=== PATIENT | female | born 1965 | race Caucasian/White ===

== ENCOUNTER 2016-10-21 10:45 | Emergency (ER) | payer OTHER ==
[2016-10-21 11:36] VITALS: TEMP 98.5; BMI 26.8
--- NOTE | 2016-10-21 17:50 | PDOC ---
History of Present Illness - History of Present Illness Initial Comments: 10/21/16 19:03 The patient is a 51 year old female with no past medical hx who presents to the ED complaining of nausea, vomiting, and diarrhea for two weeks. The patient states she has associated subjective fever and lower back pain. The patient denies any dysuria, hematuria, frequency, urgency. The patient notes she had an unremarkable colonoscopy in October of 2014. She also had a gastric emptying procedure and the study was normal. The patient reports headache The patient denies chest pain, SOB The patient denies chills Social: No toxic habits reported Surgical: Allergies: NKDA PCP: Dr. Diehl <Shilpa Mehta - Last Filed: 10/21/16 19:03> <Olivia Valenzuela - Last Filed: 10/21/16 19:11> - General Chief Complaint: Back Pain Stated Complaint: HEADACHES, VOMITING, LOWER BACK PAIN Time Seen by Provider: 10/21/16 17:43 Past History <Shilpa Mehta - Last Filed: 10/21/16 19:03> - Past Medical History Anemia: No Asthma: No Cancer: No Cardiac Disorders: No CVA: No COPD: No CHF: No Dementia: No Diabetes: No GI Disorders: No Disorders: No HTN: Yes Hypercholesterolemia: No Liver Disease: No Psychiatric Problems: Yes (ANXIETY.) Seizures: No Thyroid Disease: Yes (HYPER.) - Surgical History Abdominal Surgery: Yes Appendectomy: No Cardiac Surgery: No Cholecystectomy: No Lung Surgery: No Neurologic Surgery: No Orthopedic Surgery: No - Immunization History Immunization Up to Date: Yes - Psycho/Social/Smoking Cessation Hx Anxiety: Yes Suicidal Ideation: No Smoking History: Current every day smoker Have you smoked in the past 12 months: Yes Number of Cigarettes Smoked Daily: 2 Information on smoking cessation initiated: No 'Breaking Loose' booklet given: 12/22/13 Hx Alcohol Use: Yes Drug/Substance Use Hx: No Substance Use Type: Alcohol Hx Substance Use Treatment: No <Olivia Valenzuela - Last Filed: 10/21/16 19:11> - Past Medical History Allergies/Adverse Reactions: Allergies Allergy/AdvReac Type Severity Reaction Status Date / Time No Known Allergies Allergy Verified 10/21/16 11:32 Home Medications: Ambulatory Orders Petrolat,Wht/Min Oil/Sod Chl [Artificial Tear Ointment] 1 applic OP TID #1 tube 07/10/15 Ondansetron [Zofran Odt -] 4 mg SL TID PRN #12 od.tablet 10/21/16 Review of Systems - Review of Systems Able to Perform ROS?: Yes Comments:: 10/21/16 19:03 CONSTITUTIONAL: +fever Absent: chills, diaphoresis, generalized weakness, malaise, loss of appetite HEENT: Absent: rhinorrhea, nasal congestion, throat pain, throat swelling, difficulty swallowing, mouth swelling, ear pain, eye pain, visual Changes CARDIOVASCULAR: Absent: chest pain, syncope, palpitations, irregular heart rate, lightheadedness , peripheral edema RESPIRATORY: Absent: cough, shortness of breath, dyspnea with exertion, orthopnea, wheezing, stridor, hemoptysis GASTROINTESTINAL: +Nausea, vomiting, diarrhea. Absent: abdominal pain, abdominal distension, constipation, melena, hematochezia GENITOURINARY: Absent: dysuria, frequency, urgency, hesitancy, hematuria, flank pain, genital pain MUSCULOSKELETAL: +lower back pain Absent: joint swelling SKIN: Absent: rash, itching, pallor ENDOCRINE: Absent: unexplained weight gain, unexplained weight loss, heat intolerance, cold intolerance NEUROLOGIC: +headache Absent: focal weakness or paresthesias, dizziness, unsteady gait, seizure, mental status changes, bladder or bowel incontinence PSYCHIATRIC: Absent: anxiety, depression, suicidal or homicidal ideation, hallucinations. <Shilpa Mehta - Last Filed: 10/21/16 19:03> *Physical Exam - Vital Signs Last Vital Signs Temp Pulse Resp BP Pulse Ox 98.5 F 78 18 135/88 98 10/21/16 11:33 10/21/16 11:33 10/21/16 11:33 10/21/16 11:33 10/21/16 11:33 - Physical Exam Comments: 10/21/16 19:04 GENERAL: Well developed, well nourished. Awake and alert. No acute distress. HEENT: Normocephalic, atraumatic. PERRLA, EOMI. No conjunctival pallor. Sclera are non- icteric. Moist mucous membranes. Oropharynx is clear. NECK: Supple. Full ROM. No JVD. Carotid pulses 2+ and symmetric, without bruits. No thyromegaly. No lymphadenopathy. CARDIOVASCULAR: Regular rate and rhythm. No murmurs, rubs, or gallops. Distal pulses are 2+ and symmetric. PULMONARY: No evidence of respiratory distress. Lungs clear to auscultation bilaterally. No wheezing, rales or rhonchi. ABDOMINAL: +Mild diffuse abdominal tenderness, moderate epigastric tenderness. Soft. Non- tender. Non-distended. No rebound or guarding. No organomegaly. Normoactive bowel sounds. MUSCULOSKELETAL +Right CVA tenderness. Normal range of motion at all joints. No bony deformities or tenderness. EXTREMITIES: No cyanosis. No clubbing. No edema. No calf tenderness. SKIN: Warm and dry. Normal capillary refill. No rashes. No jaundice. NEUROLOGICAL: Alert, awake, appropriate. Cranial nerves 2-12 intact. No deficits to light touch and temperature in face, upper extremities and lower extremities. No motor deficits in the in face, upper extremities and lower extremities. Normoreflexic in the upper and lower extremities. Normal speech. Gait is normal without ataxia. PSYCHIATRIC: Cooperative. Good eye contact. Appropriate mood and affect. <Shilpa Mehta - Last Filed: 10/21/16 19:03> - Vital Signs Last Vital Signs Temp Pulse Resp BP Pulse Ox 98.5 F 78 18 135/88 98 10/21/16 11:33 10/21/16 11:33 10/21/16 11:33 10/21/16 11:33 10/21/16 11:33 <Olivia Valenzuela - Last Filed: 10/21/16 19:11> ED Treatment Course - LABORATORY CBC & Chemistry Diagram: 10/21/16 18:06 10/21/16 18:06 - ADDITIONAL ORDERS Additional order review: Laboratory Results 10/21/16 10/21/16 18:06 18:06 Sodium 141 Potassium 4.0 Chloride 104 Carbon Dioxide 31 Anion Gap 6 L BUN 12 Creatinine 0.6 Creat Clearance w eGFR > 60 Random Glucose 83 D Calcium 8.7 Total Bilirubin 0.4 AST 26 ALT 30 Alkaline Phosphatase 113 Total Protein 7.3 Albumin 3.7 Lipase 175 Urine Color Ltyellow Urine Appearance Clear Urine pH 7.0 D Ur Specific Rougon 1.016 Urine Protein Negative Urine Glucose (UA) Negative Urine Ketones Negative Urine Blood Negative Urine Nitrite Negative Urine Bilirubin Negative Urine Urobilinogen Negative Ur Leukocyte Esterase Negative 10/21/16 18:06 RBC 4.42 MCV 93.9 MCHC 33.1 RDW 12.4 MPV 7.8 Neutrophils % 42.9 Lymphocytes % 46.0 H D Monocytes % 7.9 Eosinophils % 2.4 Basophils % 0.8 - Medications Given in the ED: ED Medications Discontinued Medications Generic Name Dose Route Start Last Admin Trade Name Freq PRN Reason Stop Dose Admin Famotidine/Sodium Chloride 50 mls @ 100 mls/hr 10/21/16 18:03 10/21/16 18:25 Pepcid 20 Mg Premixed Ivpb - IVPB 10/21/16 18:32 100 mls/hr ONCE ONE Administration Sodium Chloride 1,000 mls @ 1,000 mls/hr 10/21/16 18:03 10/21/16 18:25 Normal Saline - IV 10/21/16 19:02 1,000 mls/hr ASDIR STA Administration Ondansetron HCl 4 mg 10/21/16 18:04 10/21/16 18:25 Zofran Injection IVPUSH 10/21/16 18:05 4 mg ONCE ONE Administration <Shilpa Mehta - Last Filed: 10/21/16 19:03> - LABORATORY CBC & Chemistry Diagram: 10/21/16 18:06 10/21/16 18:06 <Olivia Valenzuela - Last Filed: 10/21/16 19:11> *DC/Admit/Observation/Transfer - Attestations Scribe Attestion: 10/21/16 19:04 Documentation prepared by Shilpa Mehta, acting as vp medical for Olivia Valenzuela MD/DO. <Shilpa Mehta - Last Filed: 10/21/16 19:03> <Olivia Valenzuela - Last Filed: 10/21/16 19:11> Diagnosis at time of Disposition: Gastritis Qualifiers: Gastritis type: other gastritis Chronicity: unspecified Gastritis bleeding: without bleeding Qualified Code(s): K29.60 - Other gastritis without bleeding - Discharge Dispostion Disposition: HOME Condition at time of disposition: Stable - Prescriptions Prescriptions: Ondansetron [Zofran Odt -] 4 mg SL TID PRN #12 od.tablet PRN Reason: Nausea And/Or Vomiting - Referrals Referrals: Song Diehl MD [Primary Care Provider] - Boby Baca DO [Staff Physician] - - Patient Instructions Printed Discharge Instructions: DI for Gastritis Additional Instructions: please follow up with your die trouble shooter or see your regular physician to have a referral please machine pecan picker your prescription at [facility]
[2016-10-21] MEDS ORDERED: SODIUM CHLORIDE 1,000 ML IV STA (18:03)
[2016-10-21] MEDS ORDERED: FAMOTIDINE 20 MG/50 ML IVPB 50 ML IVPB ONE ×2 (18:03→18:12)
[2016-10-21] MEDS ORDERED: ONDANSETRON 4 MG/2 ML VIAL IVPUSH ONE (18:04)
[2016-10-21] MEDS ORDERED: ONDANSETRON 4 MG/2 ML VIAL ONE (18:11)
[2016-10-21 18:29] LABS: BASOPHIL 0.8 % (0-2.0); EOSINOPHIL 2.4 % (0-4.5); MCHC 33.1 g/dl (32.0-36.0); MEAN CELL VOLUME 93.9 fl (80-96); MEAN PLT VOLUME 7.8 fl (7.5-11.1); NEUTROPHILS 42.9 % (42.8-82.8); PLATELET COUNT 304 K/MM3 (134-434); RDW 12.4 % (11.6-15.6); WHITE BLOOD COUNT 6.5 K/mm3 (4.0-10.0)
[2016-10-21 18:30] LABS: URINE APPEARANCE CLEAR; URINE BILIRUBIN NEGATIVE (NEGATIVE); URINE BLOOD NEGATIVE (NEGATIVE); URINE COLOR LTYELLOW; URINE GLUCOSE (UA) NEGATIVE (NEGATIVE); URINE KETONE NEGATIVE (NEGATIVE); URINE LEUK ESTERASE NEGATIVE (NEGATIVE); URINE NITRITE NEGATIVE (NEGATIVE); URINE PROTEIN NEGATIVE (NEGATIVE); URINE UROBILINOGEN NEGATIVE E.U./dl (0.2-1.0)
[2016-10-21 18:53] LABS: ALBUMIN 3.7 g/dl (3.4-5.0); ALK PHOS 113 U/L (45-117); ANION GAP 6 (8-16); BILIRUBIN,TOTAL 0.4 mg/dL (0.2-1.0); CALCIUM 8.7 mg/dL (8.5-10.1); CO2 31 mmol/L (21-32); CREATININE 0.6 mg/dL (0.55-1.02); GLUCOSE,RANDOM 83 mg/dL (74-106); SGOT/AST 26 U/L (15-37); SGPT/ALT 30 U/L (12-78); TOT PROT 7.3 g/dl (6.4-8.2)
[2016-10-21 19:33] VITALS: BP 128/78; PULSE 76
== END 2016-10-21 19:38 | disposition home or self-care (01) ==
LOC: JER 10:45
PROC: 3E033GC Introduction of Other Therapeutic Substance into Peripheral Vein, Percutaneous Approach (ICD-10-PCS; principal; 2016-10-21)
PROC: 3E0337Z Introduction of Electrolytic and Water Balance Substance into Peripheral Vein, Percutaneous Approach (ICD-10-PCS; 2016-10-21)
DX: K29.60 Other gastritis without bleeding (principal); F17.210 Nicotine dependence, cigarettes, uncomplicated
CPT/HCPCS: 36415; 80053; 81003; 83690; 85025; 96365; 96375; 99282-25

== ENCOUNTER → 2017-02-24 | Emergency (ER) | payer OTHER ==
[~2017-02-24] MED LIST: ONDANSETRON 4 MG/2 ML VIAL IVPUSH STA; ONDANSETRON 4 MG/2 ML VIAL ONE; PANTOPRAZOLE SODIUM 40 MG VIAL ONE; PANTOPRAZOLE SODIUM 40 MG in SODIUM CHLORIDE 100 ML IVPB ONE; POTASSIUM CHLORIDE TABS 20 MEQ TABLET.ER (FP) PO ONE; SODIUM CHLORIDE 1,000 ML IV STA
[2017-02-24 01:54] VITALS: BP 126/73; PULSE 75; TEMP 97.5; BMI 26.3
--- NOTE | 2017-02-24 02:05 | PDOC ---
History of Present Illness - General History Source: Patient Exam Limitations: No Limitations - History of Present Illness Initial Comments: 02/24/17 02:13 The patient is a 51 year old female with significant past medical history of hypertension who presents to the ED for nausea, vomiting and diarrhea for less than 24 hours. Patient reports she was in her usual state of health when she ate some vincentian food yesterday afternoon and subsequently started to have several episodes of nonbloody/nonbilious vomiting and nonbloody diarrhea. She also reports diffuse abdominal pain. Patient states going to a clinic last night where she was prescribed zofran with no improvement. The patient denies fever, chills, cough, SOB, chest pain, and palpitations. Allergies: NKDA Social History: Occasional tobacco and etoh use. Denies drug use. Past Surgical History: PCP: Dr. Song Diehl <Etta Roberto - Last Filed: 02/24/17 05:44> - General History Source: Patient <Evans Strong - Last Filed: 02/24/17 05:49> - General Chief Complaint: Pain Stated Complaint: ABD PAIN/VOMITING/DIARRHEA Time Seen by Provider: 02/24/17 01:54 Past History <Etta Roberto - Last Filed: 02/24/17 05:44> - Past Medical History Anemia: No Asthma: No Cancer: No Cardiac Disorders: No CVA: No COPD: No CHF: No Dementia: No Diabetes: No GI Disorders: No Disorders: No HTN: Yes Hypercholesterolemia: No Liver Disease: No Psychiatric Problems: Yes (ANXIETY.) Seizures: No Thyroid Disease: Yes (HYPER.) - Surgical History Abdominal Surgery: Yes Appendectomy: No Cardiac Surgery: No Cholecystectomy: No Lung Surgery: No Neurologic Surgery: No Orthopedic Surgery: No - Immunization History Immunization Up to Date: Yes - Psycho/Social/Smoking Cessation Hx Anxiety: Yes Suicidal Ideation: No Smoking History: Never smoked Have you smoked in the past 12 months: No Number of Cigarettes Smoked Daily: 2 Information on smoking cessation initiated: No 'Breaking Loose' booklet given: 12/22/13 Hx Alcohol Use: No Drug/Substance Use Hx: No Substance Use Type: Alcohol Hx Substance Use Treatment: No <Evans Strong - Last Filed: 02/24/17 05:49> - Past Medical History Allergies/Adverse Reactions: Allergies Allergy/AdvReac Type Severity Reaction Status Date / Time No Known Allergies Allergy Verified 02/24/17 02:53 Home Medications: Ambulatory Orders Famotidine [Pepcid] 40 mg PO DAILY #30 tablet 02/24/17 Ondansetron [Zofran *Odt*] 4 mg SL TID #30 od.tablet 02/24/17 Review of Systems - Review of Systems Able to Perform ROS?: Yes Comments:: 02/24/17 02:14 CONSTITUTIONAL: Absent: fever, no chills, no fatigue EYES: Absent: visual changes ENT: Absent: ear pain, no sore throat CARDIOVASCULAR: Absent: chest pain, no palpitations RESPIRATORY: Absent: cough, no SOB GI: +abdominal pain, nausea, vomiting, diarrhea Absent: no constipation GENITOURINARY: Absent: dysuria, no frequency, no hematuria MUSCULOSKELETAL: Absent: back pain, no arthralgia, no myalgia SKIN: Absent: rash NEURO: Absent: headache <Etta Roberto - Last Filed: 02/24/17 05:44> *Physical Exam - Vital Signs Last Vital Signs Temp Pulse Resp BP Pulse Ox 97.5 F L 75 20 126/73 100 02/24/17 01:47 02/24/17 01:47 02/24/17 01:47 02/24/17 01:47 02/24/17 01:47 - Physical Exam Comments: 02/24/17 02:14 GENERAL: Well-appearing, well-nourished. No apparent distress. HEENT: Normocephalic, atraumatic. PERRL, EOM intact. CARDIOVASCULAR: Normal S1, S2. Regular rate and rhythm. PULMONARY: Clear to auscultation bilaterally. ABDOMEN: Soft, non-distended, mild diffuse tenderness. No rebound or guarding. Hyperactive bowel sounds. EXTREMITIES: Normal ROM in all four extremities. No gross deformities. SKIN: Warm, dry. No rash NEUROLOGICAL: No focal neurological deficits. <Etta Roberto - Last Filed: 02/24/17 05:44> - Vital Signs Last Vital Signs Temp Pulse Resp BP Pulse Ox 97.5 F L 75 20 126/73 100 02/24/17 01:47 02/24/17 01:47 02/24/17 01:47 02/24/17 01:47 02/24/17 01:47 <Evans Strong - Last Filed: 02/24/17 05:49> ED Treatment Course - LABORATORY CBC & Chemistry Diagram: 02/24/17 02:37 02/24/17 02:37 - RADIOLOGY Radiograph Interpretation: 02/24/17 05:44 EXAM: CT abdomen and pelvis without contrast Reviewed by Imaging windows application packager: FINDINGS: Lung bases are clear. The visualized cardiac chambers are normal size and configuration. Normal unenhanced liver, gallbladder, pancreas, spleen, adrenal glands and kidneys. The stomach and small bowel are normal. There is scattered liquid stool without colonic wall thickening, suggesting a diarrheal illness. No significant diverticulosis or evidence of diverticulitis. There is no aortic aneurysm. There is no significant retroperitoneal lymphadenopathy. There is no evidence of appendicitis, although an appendicolith is noted. The uterus and adnexal structures are normal. Urinary bladder is unremarkable. There is a small amount of pelvic free fluid. No discrete pelvic lymphadenopathy is identified. IMPRESSION: Liquid stool without colonic wall thickening suggests a diarrheal illness. Small amount of pelvic free fluid may be physiologic. <Etta Roberto - Last Filed: 02/24/17 05:44> - LABORATORY CBC & Chemistry Diagram: 02/24/17 02:37 02/24/17 02:37 <Evans Strong - Last Filed: 02/24/17 05:49> Medical Decision Making - Medical Decision Making 02/24/17 05:47 Dr. Strong: The scribe's documentation has been prepared under my direction and personally reviewed by me in its entirery. I confirm that the note above accurately reflects all work, treatment, procedures, and medical decision making performed by me. Pt feels better after treatment in the department. Pt tolerated po fluids and KCl well. Pt to be discharged. <Evans Strong - Last Filed: 02/24/17 05:49> *DC/Admit/Observation/Transfer - Attestations Scribe Attestion: 02/24/17 02:14 Documentation prepared by Etta Roberto, acting as medical claims processor for Evans Strong MD/. <Etta Roberto - Last Filed: 02/24/17 05:44> - Discharge Dispostion Admit: No <Evans Strong - Last Filed: 02/24/17 05:49> Diagnosis at time of Disposition: Gastroenteritis - Discharge Dispostion Disposition: HOME Condition at time of disposition: Stable - Prescriptions Prescriptions: Famotidine [Pepcid] 40 mg PO DAILY #30 tablet Ondansetron [Zofran *Odt*] 4 mg SL TID #30 od.tablet - Referrals Referrals: Song Diehl MD [Primary Care Provider] - Phil Pineda MD [Staff Physician] - - Patient Instructions Printed Discharge Instructions: DI for Viral Gastroenteritis -- Adult, Gastroenteritis Diet
[2017-02-24 02:42] LABS: BASOPHIL 0.8 % (0-2.0); EOSINOPHIL 1.2 % (0-4.5); MCH 31.5 pg (25.7-33.7); MCHC 33.4 g/dl (32.0-36.0); MEAN CELL VOLUME 94.3 fl (80-96); MEAN PLT VOLUME 8.2 fl (7.5-11.1); PLATELET COUNT 232 K/MM3 (134-434); RDW 12.8 % (11.6-15.6); WHITE BLOOD COUNT 6.6 K/mm3 (4.0-10.0)
[2017-02-24 03:05] LABS: ALBUMIN 3.5 g/dl (3.4-5.0); ALK PHOS 106 U/L (45-117); ANION GAP 11 (8-16); BILIRUBIN,TOTAL 0.3 mg/dL (0.2-1.0); CALCIUM 8.2 mg/dL (8.5-10.1); CO2 26 mmol/L (21-32); CREATININE 0.9 mg/dL (0.55-1.02); GLUCOSE,RANDOM 125 mg/dL (74-106); SGOT/AST 36 U/L (15-37); SGPT/ALT 28 U/L (12-78); TOT PROT 6.9 g/dl (6.4-8.2)
[2017-02-24 04:30] LABS: URINE APPEARANCE CLEAR; URINE BILIRUBIN NEGATIVE (NEGATIVE); URINE COLOR LTYELLOW; URINE GLUCOSE (UA) NEGATIVE (NEGATIVE); URINE KETONE NEGATIVE (NEGATIVE); URINE NITRITE NEGATIVE (NEGATIVE); URINE PROTEIN NEGATIVE (NEGATIVE); URINE UROBILINOGEN NEGATIVE E.U./dl (0.2-1.0)
[2017-02-24 04:31] LABS: URINE BLOOD 2+ (NEGATIVE); URINE LEUK ESTERASE 1+ (NEGATIVE)
[2017-02-24 05:16] LABS: URINE BACTERIA RARE /hpf (NONE SEEN); URINE MUCUS RARE; URINE WBC 12 /hpf (3-5)
== END | disposition home or self-care (01) ==
LOC: JER 01:28
PROC: 3E033GC Introduction of Other Therapeutic Substance into Peripheral Vein, Percutaneous Approach (ICD-10-PCS; principal; 2017-02-24)
DX: K52.9 Noninfective gastroenteritis and colitis, unspecified (principal); E87.6 Hypokalemia; I10 Essential (primary) hypertension; F41.9 Anxiety disorder, unspecified; E05.80 Other thyrotoxicosis without thyrotoxic crisis or storm
CPT/HCPCS: 36415; 74176-TC; 80053; 81003; 81015; 84703; 85025; 96365; 96375; 99282-25

== ENCOUNTER 2018-10-04 16:24 | Emergency (ER) | payer OTHER ==
[2018-10-04 16:43] VITALS: BP 133/69; PULSE 80; TEMP 98.6; BMI 26.0
--- NOTE | 2018-10-04 16:45 | PDOC ---
Rapid Medical Evaluation Chief Complaint: Respiratory Time Seen by Provider: 10/04/18 16:40 Medical Evaluation: Allergies Allergy/AdvReac Type Severity Reaction Status Date / Time No Known Allergies Allergy Verified 02/24/17 02:53 10/04/18 16:40 I have performed a brief in-person evaluation of this patient. The patient presents with a chief complaint of: cough, congestion , pleuritic cp Pertinent physical exam findings: pale , moist cough I have ordered the following: influenza The patient will proceed to the ED for further evaluation. 10/04/18 16:43 Discharge Disposition - Diagnosis Cough - Referrals Referrals: Supa Negrete MD [Primary Care Provider] - - Patient Instructions - Post Discharge Activity
--- NOTE | 2018-10-04 17:31 | PDOC ---
History of Present Illness - General Chief Complaint: Chest Pain Stated Complaint: CHEST PAIN Time Seen by Provider: 10/04/18 16:40 History Source: Patient, Set Up And Charger Used (#[id number]) - History of Present Illness Initial Comments: 10/04/18 18:28 Patient with no significant past medication present with complaint of one month history of persistent cough, nasal congestion and runny nose. Patient also reports that a feeling midsternal chest pain since yesterday. Patient denies shortness of breath, radiation of pain, sweats, nausea or vomiting, numbness or tingling sensation. Patient denies fevers. Timing/Duration: other (1 month) Past History - Past Medical History Allergies/Adverse Reactions: Allergies Allergy/AdvReac Type Severity Reaction Status Date / Time No Known Allergies Allergy Verified 02/24/17 02:53 Home Medications: Ambulatory Orders Azithromycin [Zithromax 250mg Tablets -] 250 mg PO UTDICT #6 tab 10/04/18 Benzonatate [Tessalon Pearls -] 100 mg PO TID PRN #21 capsule 10/04/18 Ipratropium [place] 2 spray NS BID PRN #1 spray 10/04/18 Anemia: No Asthma: No Cancer: No Cardiac Disorders: No CVA: No COPD: No CHF: No Dementia: No Diabetes: No GI Disorders: No Disorders: No HTN: Yes Hypercholesterolemia: No Liver Disease: No Psychiatric Problems: Yes (ANXIETY.) Seizures: No Thyroid Disease: Yes (HYPER.) - Surgical History Abdominal Surgery: Yes Appendectomy: No Cardiac Surgery: No Cholecystectomy: No Lung Surgery: No Neurologic Surgery: No Orthopedic Surgery: No - Immunization History Immunization Up to Date: Yes - Suicide/Smoking/Psychosocial Hx Smoking History: Never smoked Have you smoked in the past 12 months: No Number of Cigarettes Smoked Daily: 2 Information on smoking cessation initiated: No 'Breaking Loose' booklet given: 12/22/13 Hx Alcohol Use: No Drug/Substance Use Hx: No Substance Use Type: Alcohol Hx Substance Use Treatment: No Review of Systems - Review of Systems Able to Perform ROS?: Yes Is the patient limited Yakut proficient: No Constitutional: No: See HPI, Fever, Malaise HEENTM: Yes: Symptoms Reported, See HPI, Nose Congestion. No: Eye Pain, Blurred Vision, Tearing, Recent change in vision, Double Vision, Cataracts, Ear Pain, Ocular Prothesis, Ear Discharge, Nose Pain, Tinnitus, Nose Bleeding, Hearing Loss, Throat Pain, Throat Swelling, Mouth Pain, Dental Problems, Difficulty Swallowing, Mouth Swelling, Other Respiratory: Yes: Symptoms reported, See HPI, Cough. No: Orthopnea, Shortness of Breath, SOB with Exertion, SOB at Rest, Stridor, Wheezing, Productive cough, Hemoptysis, Other Cardiac (ROS): Yes: Symptoms Reported, See HPI, Chest Pain (mid-sternum). No: Edema, Irregular Heart Rate, Lightheadedness, Palpitations, Syncope, Chest Tightness, Other ABD/GI: No: Nausea, Vomiting All Other Systems: Reviewed and Negative *Physical Exam - Vital Signs Last Vital Signs Temp Pulse Resp BP Pulse Ox 98.6 F 80 18 133/69 100 10/04/18 16:41 10/04/18 16:41 10/04/18 16:41 10/04/18 16:41 10/04/18 16:41 - Physical Exam Comments: 10/04/18 18:30 GENERAL: Well developed, well nourished. Awake and alert. No acute distress. HEENT: Normocephalic, atraumatic. PERRLA, EOMI. No conjunctival pallor. Sclera are non-icteric. Moist mucous membranes. Oropharynx is clear. NECK: Supple. Full ROM. CARDIOVASCULAR: Regular rate and rhythm. No murmurs, rubs, or gallops. Distal pulses are 2+ and symmetric. PULMONARY: No evidence of respiratory distress. Lungs clear to auscultation bilaterally. No wheezing, rales or rhonchi. ABDOMINAL: Soft. Non-tender. Non-distended. No rebound or guarding. No organomegaly. Normoactive bowel sounds. MUSCULOSKELETAL : mild reproduceable tenderness to mid-sternum Normal range of motion at all joints. SKIN: Warm and dry. Normal capillary refill. No rashes. No jaundice. NEUROLOGICAL: Alert, awake, appropriate. Gait is normal without ataxia. PSYCHIATRIC: Cooperative. Good eye contact. Appropriate mood General Appearance: Yes: Nourished, Appropriately Dressed. No: Apparent Distress Moderate Sedation - Procedure Monitoring Vital Signs: Procedure Monitoring Vital Signs Temperature 98.6 F 10/04/18 16:41 Pulse Rate 80 10/04/18 16:41 Respiratory Rate 18 10/04/18 16:41 Blood Pressure 133/69 10/04/18 16:41 O2 Sat by Pulse Oximetry (%) 100 10/04/18 16:41 Medical Decision Making - Medical Decision Making 10/04/18 18:30 Patient with no significant past medication present with complaint of one month history of persistent cough, nasal congestion and runny nose and now with 24 hour history of midsternal chest pain from coughing with no other symptoms. Patient with no symptoms concerning for cardiac pain. Clinical exam unremarkable except mild reproducible tenderness to midsternal. EKG shows normal sinus rhythm. Chest x-ray shows no acute pathology or infiltrate. Symptoms likely bronchitis with costochondritis from coughing. Patient is stable for outpatient management for bronchitis with PCP follow-up. Patient seen in discharge but patient had already left when nurse went to give discharge papers. *DC/Admit/Observation/Transfer Diagnosis at time of Disposition: Cough URI (upper respiratory infection) Qualifiers: URI type: unspecified URI Qualified Code(s): J06.9 - Acute upper respiratory infection, unspecified Acute bronchitis Qualifiers: Bronchitis organism: unspecified organism Qualified Code(s): J20.9 - Acute bronchitis, unspecified - Discharge Dispostion Disposition: ELOPED Decision to Admit order: No - Prescriptions Prescriptions: Azithromycin [Zithromax 250mg Tablets -] 250 mg PO UTDICT #6 tab Benzonatate [Tessalon Pearls -] 100 mg PO TID PRN #21 capsule PRN Reason: Cough Ipratropium [place] 2 spray NS BID PRN #1 spray PRN Reason: nasal congestion - Referrals Referrals: Supa Negrete MD [Primary Care Provider] - - Patient Instructions Printed Discharge Instructions: DI for Chest Pain Additional Instructions: Your chest-xray was normal. Take medications as prescribed. Increase fluid intake. Follow-up with PCP - Post Discharge Activity
--- NOTE | 2018-10-05 16:29 | EKG ---
Test Reason : Blood Pressure : / mmHG Vent. Rate : 067 BPM Atrial Rate : 067 BPM P-R Int : 164 ms QRS Dur : 082 ms QT Int : 416 ms P-R-T Axes : 059 056 078 degrees QTc Int : 439 ms NORMAL SINUS RHYTHM NORMAL ECG NO PREVIOUS ECGS AVAILABLE Confirmed by MD VERA, PRINCESS ([id number]) on 10/05/2018 4:29:09 PM Referred By: Confirmed By:PRINCESS GAMEZ MD
== END 2018-10-04 18:29 | disposition home or self-care (01) ==
LOC: JERFT 16:24
DX: J06.9 Acute upper respiratory infection, unspecified (principal); J20.9 Acute bronchitis, unspecified; R05 Cough; F41.9 Anxiety disorder, unspecified; I10 Essential (primary) hypertension; E07.9 Disorder of thyroid, unspecified
CPT/HCPCS: 71046-TC-FY; 87804; 93005; 93010; 99281-25

== ENCOUNTER 2018-12-06 16:52 | Emergency (ER) | payer OTHER ==
--- NOTE | 2018-12-06 16:56 | PDOC ---
Rapid Medical Evaluation Time Seen by Provider: 12/06/18 16:53 Medical Evaluation: Allergies Allergy/AdvReac Type Severity Reaction Status Date / Time No Known Allergies Allergy Verified 02/24/17 02:53 12/06/18 16:53 I performed a brief in-person evaluation of this patient. Chief complaint: Fell on Thursday, has neck pain, low back pain, right leg pain, dizziness, dysuria Pertinent physical exam findings: Normal strength and sensation. Cervical/ lumbar paravertebral tenderness. I have ordered the following: UA/culture Patient will proceed to the ED for further evaluation. Discharge Disposition - Diagnosis Fall, Back pain - Referrals - Patient Instructions - Post Discharge Activity
[2018-12-06 16:58] VITALS: BP 130/77; PULSE 75; TEMP 98.5; BMI 26.8
[2018-12-06 17:14] LABS: URINE APPEARANCE CLEAR; URINE BILIRUBIN NEGATIVE (<2.0 mg/dL); URINE COLOR STRAW; URINE GLUCOSE (UA) NEGATIVE (NEGATIVE); URINE KETONE NEGATIVE (NEGATIVE); URINE LEUK ESTERASE 1+ (NEGATIVE); URINE NITRITE NEGATIVE (NEGATIVE); URINE PROTEIN NEGATIVE (NEGATIVE); URINE UROBILINOGEN NEGATIVE mg/dL (0.2-1.0)
[2018-12-06 17:24] LABS: EPI CELLS RARE /HPF (FEW); URINE MUCUS RARE
[2018-12-06] MEDS ORDERED: CYCLOBENZAPRINE HCL 10 MG TABLET (FP) PO ONE (17:43)
[2018-12-06] MEDS ORDERED: IBUPROFEN 400 MG TABLET (FP) PO ONE ×2 (17:43→17:51)
[2018-12-06] MEDS ORDERED: CYCLOBENZAPRINE HCL 10 MG TABLET (FP) ONE (17:51)
--- NOTE | 2018-12-06 18:11 | PDOC ---
History of Present Illness - General Chief Complaint: Back Pain Stated Complaint: LOWER BACK PAIN Time Seen by Provider: 12/06/18 16:53 History Source: Patient Exam Limitations: Language Barrier (Phone site identification specialist used) Past History - Past Medical History Allergies/Adverse Reactions: Allergies Allergy/AdvReac Type Severity Reaction Status Date / Time No Known Allergies Allergy Verified 12/06/18 16:56 Home Medications: Ambulatory Orders Cyclobenzaprine HCl [Flexeril 10 mg] 10 mg PO TID PRN #21 tablet 12/06/18 Anemia: No Asthma: No Cancer: No Cardiac Disorders: No CVA: No COPD: No CHF: No Dementia: No Diabetes: No GI Disorders: No Disorders: No HTN: Yes Hypercholesterolemia: No Liver Disease: No Psychiatric Problems: Yes (ANXIETY.) Seizures: No Thyroid Disease: Yes (HYPER.) - Surgical History Abdominal Surgery: Yes Appendectomy: No Cardiac Surgery: No Cholecystectomy: No Lung Surgery: No Neurologic Surgery: No Orthopedic Surgery: No - Immunization History Immunization Up to Date: Yes - Suicide/Smoking/Psychosocial Hx Smoking History: Current some day smoker Have you smoked in the past 12 months: No Number of Cigarettes Smoked Daily: 1 Information on smoking cessation initiated: No 'Breaking Loose' booklet given: 12/22/13 Hx Alcohol Use: No Drug/Substance Use Hx: No Substance Use Type: Alcohol Hx Substance Use Treatment: No *Physical Exam - Vital Signs Last Vital Signs Temp Pulse Resp BP Pulse Ox 98.5 F 75 18 130/77 97 12/06/18 16:56 12/06/18 16:56 12/06/18 16:56 12/06/18 16:56 12/06/18 16:56 - Physical Exam General Appearance: No: Apparent Distress Neck: positive: Tender lateral (along R traps). negative: Decreased range of motion, Rigidity, Tender midline Respiratory/Chest: positive: Lungs Clear, Normal Breath Sounds. negative: Respiratory Distress Cardiovascular: positive: Regular Rhythm, Regular Rate, S1, S2. negative: Murmur Gastrointestinal/Abdominal: positive: Normal Bowel Sounds, Soft. negative: Tender, Distended, Guarding, Rebound Musculoskeletal: positive: Other (Mild TTP along L paraspinal muscles (along thoracic spine)). negative: CVA Tenderness, Vertebral Tenderness Integumentary: positive: Normal Color Neurologic: positive: Alert, Normal Mood/Affect Moderate Sedation - Procedure Monitoring Vital Signs: Procedure Monitoring Vital Signs Temperature 98.5 F 12/06/18 16:56 Pulse Rate 75 12/06/18 16:56 Respiratory Rate 18 12/06/18 16:56 Blood Pressure 130/77 12/06/18 16:56 O2 Sat by Pulse Oximetry (%) 97 12/06/18 16:56 ED Treatment Course - ADDITIONAL ORDERS Additional order review: Laboratory Results 12/06/18 16:58 Urine Color Straw Urine Appearance Clear Urine pH 5.0 Ur Specific [place] 1.015 Urine Protein Negative Urine Glucose (UA) Negative Urine Ketones Negative Urine Blood Negative Urine Nitrite Negative Urine Bilirubin Negative Urine Urobilinogen Negative Ur Leukocyte Esterase 1+ H Urine WBC (Auto) 4 Urine RBC (Auto) 1 Ur Epithelial Cells Rare Urine Mucus Rare - Medications Given in the ED: ED Medications Discontinued Medications Generic Name Dose Route Start Last Admin Trade Name Freq PRN Reason Stop Dose Admin Cyclobenzaprine HCl 10 mg 12/06/18 17:43 12/06/18 17:54 Flexeril - PO 12/06/18 17:44 10 mg ONCE ONE Administration Ibuprofen 800 mg 12/06/18 17:43 12/06/18 17:54 Motrin - PO 12/06/18 17:44 800 mg ONCE ONE Administration Medical Decision Making - Medical Decision Making 53 y/o F with no sig pmh presents with nonradiating neck and upper back pain s/ p fall 3 days ago. States was moving bed and the metal frame hit her along the back and then she tripped and fell forward. Pain is worse with movement of spine. Denies LOC. Also mentions having dysuria x 3 days. Denies fever, sob, cp , abd pain, hematuria, bowel/bladder incontinence, saddle/groin paresthesia, numbness/tingling/weakness of extremities. Likely muscle sprain; patient with no focal deficits and ambulating around ED in NAD Given Motrin and Flexeril UA negative Stable for discharge 12/06/18 18:07 *DC/Admit/Observation/Transfer Diagnosis at time of Disposition: Muscle strain Fall Qualifiers: Encounter type: initial encounter Qualified Code(s): W19.XXXA - Unspecified fall, initial encounter - Discharge Dispostion Disposition: HOME Condition at time of disposition: Stable Decision to Admit order: No - Prescriptions Prescriptions: Cyclobenzaprine HCl [Flexeril 10 mg] 10 mg PO TID PRN #21 tablet PRN Reason: Muscle Spasms - Referrals - Patient Instructions Printed Discharge Instructions: DI for Thoracic Back Pain, DI for Muscle Strain Additional Instructions: Thank you for choosing [facility]. It was a pleasure taking care of you. Your urine test was negative Likely you have muscle strain. You may take Motrin 600 mg every 6 hours by mouth as needed for mild to moderate pain. Take Motrin with food. You were also prescribed a muscle relaxer, Flexeril. Take as needed for muscle spasms. This medication can also make you drowsy so please be cautious with driving or performing heavy physical work. Warm compresses may also help Follow-up with your doctor in 2-3 days Return to the Emergency Department if your symptoms worsen or persist, you have fever, shortness of breath, chest pain, severe abdominal pain, vomiting, dizziness, weakness of extremities (arms and/or legs), changes in vision or walking or other concerning symptoms. Jenniffer por elegir el [facility]. Fue un placer cuidar de ti. Tu prueba de orina fue negativa Es probable que tengas distensin muscular. Puede isaiah Motrin 600 mg cada 6 horas por va oral segn sea necesario para el dolor leve a moderado. Delmar Motrin con la comida. Tambin te recetaron un relajante muscular, Flexeril. Isaiah segn sea necesario para los espasmos musculares. Marlena medicamento tambin puede causarle somnolencia, as que tenga cuidado al conducir o realizar trabajos fsicos pesados. Las compresas calientes tambin pueden ayudar Seguimiento con carney mdico en 2-3 phillips. Regrese al Departamento de Emergencias si luiz sntomas empeoran o persisten, tiene fiebre, falta de aliento, dolor en el pecho, dolor abdominal intenso, vmitos, mareos, debilidad en las extremidades (brazos y / o piernas), cambios en la visin o al caminar u otros relacionados los sntomas. Print Language: NEPALI - Post Discharge Activity
== END 2018-12-06 18:17 | disposition home or self-care (01) ==
LOC: JERFT 16:52
DX: S29.012A Strain of muscle and tendon of back wall of thorax, initial encounter (principal); W18.09XA Striking against other object with subsequent fall, initial encounter; Y93.89 Activity, other specified; Y92.032 Bedroom in apartment as the place of occurrence of the external cause; Y99.8 Other external cause status
CPT/HCPCS: 81003; 81015; 87086; 99281-25

== ENCOUNTER 2020-12-05 03:30 | Inpatient (IN) | payer OTHER ==
[2020-12-05] MEDS ORDERED: DEXAMETHASONE SOD PHOSPHATE 4 MG/1 ML VIAL IVPUSH ONE (03:40)
[2020-12-05] MEDS ORDERED: PIPERACILLIN/TAZOB 4.5 GM 4.5 GM in DEXTROSE 5%-WATER 100 ML IVPB ONE (05:02)
[2020-12-05] MEDS ORDERED: VANCOMYCIN 1 GM in D5W (PRE-DOCKED) 1,000 MG/250 ML IVPB ONE (05:02)
[2020-12-05] MEDS ORDERED: PIPERACILLIN/TAZOB 4.5 GM 4.5 GM/100 ML BAG IVPB ONE (05:05)
[2020-12-05] MEDS ORDERED: DEXAMETHASONE SOD PHOSPHATE 10 MG/1 ML VIAL ONE (05:05)
[2020-12-05] MEDS ORDERED: VANCOMYCIN 1 GRAM (PRE-DOCKED) 1,000 MG/250 ML BAG IVPB ONE (05:06)
[2020-12-05] MEDS ORDERED: SODIUM CHLORIDE 0.9% 500 ML INFUS.BAG IV ONE (05:08)
[2020-12-05 05:29] LABS: BASO % 0.3 % (0-2.0); EOS % 0.2 % (0-4.5); HEMATOCRIT 37.6 % (32.4-45.2); HEMOGLOBIN 13.1 GM/dL (10.7-15.3); LYMPH % 10.5 % (8-40); MCH 32.7 pg (25.7-33.7); MEAN CELL VOLUME 93.4 fl (80-96); MEAN PLT VOLUME 8.6 fl (7.5-11.1); MONO % 7.8 % (3.8-10.2); NEUT % 81.2 % (42.8-82.8); PLATELET COUNT 279 K/MM3 (134-434); RBC 4.02 M/mm3 (3.60-5.2); RDW 12.9 % (11.6-15.6); WHITE BLOOD COUNT 9.8 K/mm3 (4.0-10.0)
[2020-12-05 05:47] LABS: CHLORIDE 105 mmol/L (98-107); INR 1.03 (0.83-1.09); POTASSIUM 3.6 mmol/L (3.5-5.1); PROTHROMBIN TIME (PATIENT) 12.6 SEC (9.7-13.0); SODIUM 138 mmol/L (136-145)
[2020-12-05 05:49] LABS: ACTIVATED PTT 29.6 SECONDS (25.2-36.5); ALBUMIN 2.7 g/dl (3.4-5.0); ANION GAP 6 MMOL/L (8-16); CO2 28 mmol/L (21-32)
[2020-12-05 05:50] LABS: BLOOD UREA NITROGEN 4.6 mg/dL (7-18); GLUCOSE,RANDOM 123 mg/dL (74-106)
[2020-12-05 05:52] LABS: SGOT/AST 56 U/L (15-37); SGPT/ALT 30 U/L (13-61); VENOUS BASE EXCESS 1.3 mmol/L (-2-2); VENOUS O2 SATURATION 39.8 % (70-80); VENOUS PCO2 52.3 mmHg (38-52); VENOUS PH 7.349 (7.310-7.410)
[2020-12-05 05:53] LABS: CREATININE 0.6 mg/dL (0.55-1.3)
[2020-12-05 05:54] LABS: BILIRUBIN,TOTAL 0.6 mg/dL (0.2-1); TOT PROT 6.4 g/dl (6.4-8.2)
[2020-12-05 05:55] LABS: ALK PHOS 108 U/L (45-117)
[2020-12-05 05:56] LABS: LDH 742 U/L (84-246)
[2020-12-05] MEDS ORDERED: ACETAMINOPHEN 1000 MG/100 ML VIAL (NON FORMULARY) IVPB ONE (06:21)
[2020-12-05] MEDS ORDERED: ACETAMINOPHEN INJECTION 100 ML IVPB ONE (06:37)
[2020-12-05] MEDS: ENOXAPARIN NA (PORCINE) 60 MG/0.6 ML DISP.SYRIN SQ SCH ×3 (07:39→23:11)
[2020-12-05 08:24] LABS: PH,URINE 6.5 (5.0-8.0); URINE APPEARANCE CLOUDY; URINE BILIRUBIN NEGATIVE (NEGATIVE); URINE COLOR YELLOW; URINE GLUCOSE (UA) NEGATIVE (NEGATIVE); URINE KETONE TRACE (NEGATIVE); URINE LEUK ESTERASE NEGATIVE (NEGATIVE); URINE NITRITE NEGATIVE (NEGATIVE); URINE PROTEIN TRACE (NEGATIVE); URINE UROBILINOGEN 0.2 mg/dL (0.2-1.0)
[2020-12-05] MEDS: NICOTINE 14 MG/24 HOURS TOPICAL PATCH TD SCH (11:11)
[2020-12-05] MEDS ORDERED: ZINC SULFATE 220 MG CAPSULE (FP) ONE (11:16)
[2020-12-05] MEDS ORDERED: ASCORBIC ACID 500 MG TABLET (FP) ONE (11:16)
[2020-12-05] MEDS ORDERED: CHOLECALCIFEROL (VIT D3) 1,000 UNIT (25 MCG) TABLET ONE (11:17)
[2020-12-05] MEDS: CHOLECALCIFEROL (VIT D3) 1,000 UNIT (25 MCG) TABLET PO SCH (11:24)
[2020-12-05] MEDS: ZINC SULFATE 220 MG CAPSULE (FP) PO SCH (11:24)
[2020-12-05] MEDS: ASCORBIC ACID 500 MG TABLET (FP) PO SCH ×2 (11:24→21:46)
[2020-12-05] MEDS ORDERED: REMDESIVIR 200 MG in SODIUM CHLORIDE 210 ML IVPB ONE (16:00)
[2020-12-05 23:44] VITALS: BMI 25.2
[2020-12-06] MEDS ORDERED: DEXTROSE 5%-WATER - 50 ML IVPB ONE (09:08)
[2020-12-06] MEDS ORDERED: cefTRIAXone SODIUM 1 GM VIAL ONE (09:08)
[2020-12-06] MEDS ORDERED: AZITHROMYCIN IVPB 500 MG/250 ML BAG IVPB SCH (10:00)
[2020-12-06] MEDS ORDERED: CEFTRIAXONE 1 GM in DEXTROSE 5%-WATER - 50 ML IVPB SCH (10:00)
[2020-12-06] MEDS ORDERED: FLU VACCINE (FLULAVAL) PF 60 MCG/0.5 ML SYRINGE 2020-2021 IM ONE (10:00)
[2020-12-06 10:18] LABS: BASO % 0.2 % (0-2.0); HEMATOCRIT 35.5 % (32.4-45.2); HEMOGLOBIN 12.4 GM/dL (10.7-15.3); LYMPH % 8.4 % (8-40); MCH 32.9 pg (25.7-33.7); MEAN PLT VOLUME 8.4 fl (7.5-11.1); MONO % 8.2 % (3.8-10.2); NEUT % 83.2 % (42.8-82.8); PLATELET COUNT 383 K/MM3 (134-434); RBC 3.78 M/mm3 (3.60-5.2); RDW 12.9 % (11.6-15.6)
[2020-12-06 10:23] LABS: POTASSIUM 3.7 mmol/L (3.5-5.1)
[2020-12-06 10:35] LABS: CALCIUM 8.4 mg/dL (8.5-10.1)
[2020-12-06 10:36] LABS: ALBUMIN 2.4 g/dl (3.4-5.0); BLOOD UREA NITROGEN 8.1 mg/dL (7-18); MAGNESIUM 2.3 mg/dL (1.8-2.4)
[2020-12-06 10:39] LABS: CREATININE 0.6 mg/dL (0.55-1.3); PHOSPHOROUS 3.4 mg/dL (2.5-4.9)
[2020-12-06 10:40] LABS: BILIRUBIN,TOTAL 0.5 mg/dL (0.2-1)
[2020-12-06] MEDS: ASCORBIC ACID 500 MG TABLET (FP) PO SCH ×2 (10:44→21:51)
[2020-12-06] MEDS: CHOLECALCIFEROL (VIT D3) 1,000 UNIT (25 MCG) TABLET PO SCH (10:44)
[2020-12-06] MEDS: ZINC SULFATE 220 MG CAPSULE (FP) PO SCH (10:44)
[2020-12-06] MEDS: ENOXAPARIN NA (PORCINE) 60 MG/0.6 ML DISP.SYRIN SQ SCH ×2 (10:45→21:51)
[2020-12-06] MEDS: DEXAMETHASONE SOD PHOSPHATE 10 MG/1 ML VIAL IVPUSH SCH (10:46)
[2020-12-06] MEDS: NICOTINE 14 MG/24 HOURS TOPICAL PATCH TD SCH (10:48)
[2020-12-06] MEDS: REMDESIVIR 100 MG in SODIUM CHLORIDE 230 ML IVPB SCH (17:27)
[2020-12-06] MEDS ORDERED: PT OWN MED DRAWER 7, Y5N ONE (21:42)
[2020-12-06] MEDS: FAMOTIDINE 20 MG TABLET PO SCH (21:51)
[2020-12-07 07:59] LABS: BASO % 0.2 % (0-2.0); HEMATOCRIT 35.7 % (32.4-45.2); HEMOGLOBIN 12.3 GM/dL (10.7-15.3); LYMPH % 7.8 % (8-40); MCH 32.4 pg (25.7-33.7); MCHC 34.4 g/dl (32.0-36.0); MEAN CELL VOLUME 94.2 fl (80-96); MEAN PLT VOLUME 8.4 fl (7.5-11.1); MONO % 7.3 % (3.8-10.2); NEUT % 84.7 % (42.8-82.8); PLATELET COUNT 437 K/MM3 (134-434); RBC 3.79 M/mm3 (3.60-5.2); RDW 12.9 % (11.6-15.6); WHITE BLOOD COUNT 15.2 K/mm3 (4.0-10.0)
[2020-12-07 08:22] LABS: POTASSIUM 3.9 mmol/L (3.5-5.1)
[2020-12-07 08:35] LABS: CALCIUM 8.3 mg/dL (8.5-10.1)
[2020-12-07 08:36] LABS: ALBUMIN 2.3 g/dl (3.4-5.0); BLOOD UREA NITROGEN 14.6 mg/dL (7-18)
[2020-12-07 08:37] LABS: BILIRUBIN,TOTAL 0.4 mg/dL (0.2-1)
[2020-12-07 08:39] LABS: CREATININE 0.6 mg/dL (0.55-1.3)
[2020-12-07] MEDS ORDERED: POLYETHYLENE GLYCOL 3350 119 GM BTL PO PRN (09:47)
[2020-12-07 10:47] LABS: ANISOCYTOSIS 1+; MACROCYTOSIS 0; PLATELET ESTIMATE NORMAL
[2020-12-07] MEDS ORDERED: PT OWN MED DRAWER 7, Y5N ONE ×2 (11:29→21:10)
[2020-12-07] MEDS: ZINC SULFATE 220 MG CAPSULE (FP) PO SCH (11:33)
[2020-12-07] MEDS: NICOTINE 14 MG/24 HOURS TOPICAL PATCH TD SCH (11:33)
[2020-12-07] MEDS: ENOXAPARIN NA (PORCINE) 60 MG/0.6 ML DISP.SYRIN SQ SCH ×2 (11:33→21:34)
[2020-12-07] MEDS: DEXAMETHASONE SOD PHOSPHATE 10 MG/1 ML VIAL IVPUSH SCH (11:33)
[2020-12-07] MEDS: CHOLECALCIFEROL (VIT D3) 1,000 UNIT (25 MCG) TABLET PO SCH (11:33)
[2020-12-07] MEDS: ASCORBIC ACID 500 MG TABLET (FP) PO SCH ×2 (11:34→21:34)
[2020-12-07] MEDS: FAMOTIDINE 20 MG TABLET PO SCH ×2 (11:34→21:35)
[2020-12-07] MEDS: metoPROLOL SUCCINATE 25 MG TAB.SR.24H (FP) PO SCH (11:34)
[2020-12-07] MEDS: guaiFENesin/CODEINE 5 ML UNIT-DOSE CUPS PO PRN (14:26)
[2020-12-07] MEDS: REMDESIVIR 100 MG in SODIUM CHLORIDE 230 ML IVPB SCH (16:18)
[2020-12-07] MEDS: MELATONIN 1 MG TABLET PO SCH (21:34)
[2020-12-07] MEDS: SENNOSIDES 8.6MG TABLET (FP) PO SCH (21:34)
[2020-12-08 07:48] LABS: EOS % 0.2 % (0-4.5); MEAN PLT VOLUME 8.2 fl (7.5-11.1)
[2020-12-08 07:56] LABS: BASO % 0.2 % (0-2.0); HEMATOCRIT 34.5 % (32.4-45.2); HEMOGLOBIN 12.2 GM/dL (10.7-15.3); LYMPH % 15.7 % (8-40); MCH 33.3 pg (25.7-33.7); MCHC 35.3 g/dl (32.0-36.0); MEAN CELL VOLUME 94.1 fl (80-96); MONO % 6.7 % (3.8-10.2); NEUT % 77.2 % (42.8-82.8); PLATELET COUNT 452 K/MM3 (134-434); RBC 3.67 M/mm3 (3.60-5.2); RDW 13.1 % (11.6-15.6); WHITE BLOOD COUNT 12.3 K/mm3 (4.0-10.0)
[2020-12-08 08:11] LABS: CALCIUM 8.3 mg/dL (8.5-10.1)
[2020-12-08 08:12] LABS: ALBUMIN 2.2 g/dl (3.4-5.0); BLOOD UREA NITROGEN 14.1 mg/dL (7-18)
[2020-12-08 08:15] LABS: CREATININE 0.5 mg/dL (0.55-1.3)
[2020-12-08 08:16] LABS: BILIRUBIN,TOTAL 0.4 mg/dL (0.2-1); TOT PROT 5.8 g/dl (6.4-8.2)
[2020-12-08] MEDS: CHOLECALCIFEROL (VIT D3) 1,000 UNIT (25 MCG) TABLET PO SCH (10:32)
[2020-12-08] MEDS: metoPROLOL SUCCINATE 25 MG TAB.SR.24H (FP) PO SCH (10:32)
[2020-12-08] MEDS: guaiFENesin/CODEINE 5 ML UNIT-DOSE CUPS PO PRN ×2 (10:32→20:30)
[2020-12-08] MEDS: ASCORBIC ACID 500 MG TABLET (FP) PO SCH ×2 (10:32→23:35)
[2020-12-08] MEDS: FAMOTIDINE 20 MG TABLET PO SCH ×2 (10:33→23:35)
[2020-12-08] MEDS: NICOTINE 14 MG/24 HOURS TOPICAL PATCH TD SCH (10:33)
[2020-12-08] MEDS: ZINC SULFATE 220 MG CAPSULE (FP) PO SCH (10:33)
[2020-12-08] MEDS: DEXAMETHASONE SOD PHOSPHATE 10 MG/1 ML VIAL IVPUSH SCH (10:35)
[2020-12-08] MEDS: ENOXAPARIN NA (PORCINE) 60 MG/0.6 ML DISP.SYRIN SQ SCH ×2 (10:36→23:36)
[2020-12-08 10:40] LABS: ANISOCYTOSIS 0; HELMET CELLS 0; HOWELL-JOLLY BODIES 0; MACROCYTOSIS 0; OVALOCYTE 0; PLATELET ESTIMATE NORMAL; ROULEAU 0; SICKELED CELLS 0; TARGET CELLS 0; TEAR DROP CELLS 0; TOXIC GRANULATION 0
[2020-12-08] MEDS: BUDESONIDE/FORMETEROL FUMARATE 160/4.5 mcg INHALER IH SCH ×2 (13:21→23:36)
[2020-12-08] MEDS: ALBUTEROL SO4 HFA INHALER IH SCH ×3 (13:21→20:30)
[2020-12-08] MEDS: REMDESIVIR 100 MG in SODIUM CHLORIDE 230 ML IVPB SCH (17:24)
[2020-12-08] MEDS ORDERED: PT OWN MED DRAWER 7, Y5N ONE (23:28)
[2020-12-08] MEDS: MELATONIN 1 MG TABLET PO SCH (23:35)
[2020-12-08] MEDS: SENNOSIDES 8.6MG TABLET (FP) PO SCH (23:35)
[2020-12-09] MEDS ORDERED: PT OWN MED DRAWER 7, Y5N ONE ×2 (09:51→20:38)
[2020-12-09] MEDS: ZINC SULFATE 220 MG CAPSULE (FP) PO SCH (11:32)
[2020-12-09] MEDS: ASCORBIC ACID 500 MG TABLET (FP) PO SCH ×2 (11:32→21:24)
[2020-12-09] MEDS: FAMOTIDINE 20 MG TABLET PO SCH ×2 (11:32→21:25)
[2020-12-09] MEDS: CHOLECALCIFEROL (VIT D3) 1,000 UNIT (25 MCG) TABLET PO SCH (11:33)
[2020-12-09] MEDS: metoPROLOL SUCCINATE 25 MG TAB.SR.24H (FP) PO SCH (11:33)
[2020-12-09] MEDS: guaiFENesin/CODEINE 5 ML UNIT-DOSE CUPS PO PRN ×2 (11:33→21:25)
[2020-12-09] MEDS: ALBUTEROL SO4 HFA INHALER IH SCH ×4 (11:33→20:30)
[2020-12-09] MEDS: ENOXAPARIN NA (PORCINE) 60 MG/0.6 ML DISP.SYRIN SQ SCH ×2 (11:34→21:24)
[2020-12-09] MEDS: BUDESONIDE/FORMETEROL FUMARATE 160/4.5 mcg INHALER IH SCH ×2 (11:34→21:26)
[2020-12-09] MEDS: NICOTINE 14 MG/24 HOURS TOPICAL PATCH TD SCH (11:34)
[2020-12-09] MEDS: DEXAMETHASONE SOD PHOSPHATE 10 MG/1 ML VIAL IVPUSH SCH (11:39)
[2020-12-09 12:23] LABS: BASO % 0.2 % (0-2.0); HEMATOCRIT 36.5 % (32.4-45.2); HEMOGLOBIN 12.6 GM/dL (10.7-15.3); LYMPH % 18.9 % (8-40); MCH 32.7 pg (25.7-33.7); MCHC 34.4 g/dl (32.0-36.0); MEAN CELL VOLUME 94.8 fl (80-96); MEAN PLT VOLUME 8.3 fl (7.5-11.1); MONO % 7.8 % (3.8-10.2); NEUT % 72.1 % (42.8-82.8); PLATELET COUNT 489 K/MM3 (134-434); RBC 3.85 M/mm3 (3.60-5.2); RDW 12.7 % (11.6-15.6); WHITE BLOOD COUNT 11.4 K/mm3 (4.0-10.0)
[2020-12-09 12:43] LABS: POTASSIUM 3.9 mmol/L (3.5-5.1)
[2020-12-09 12:47] LABS: CALCIUM 8.6 mg/dL (8.5-10.1)
[2020-12-09 12:49] LABS: ALBUMIN 2.4 g/dl (3.4-5.0); BLOOD UREA NITROGEN 14.4 mg/dL (7-18)
[2020-12-09 12:52] LABS: CREATININE 0.6 mg/dL (0.55-1.3)
[2020-12-09 12:53] LABS: TOT PROT 6.1 g/dl (6.4-8.2)
[2020-12-09 12:57] LABS: BILIRUBIN,TOTAL 0.4 mg/dL (0.2-1)
[2020-12-09 14:04] LABS: ANISOCYTOSIS 0; HELMET CELLS 0; HOWELL-JOLLY BODIES 0; MACROCYTOSIS 0; OVALOCYTE 0; PLATELET ESTIMATE NORMAL; ROULEAU 0; SICKELED CELLS 0; TARGET CELLS 0; TEAR DROP CELLS 0; TOXIC GRANULATION 0
[2020-12-09] MEDS: REMDESIVIR 100 MG in SODIUM CHLORIDE 230 ML IVPB SCH (17:01)
[2020-12-09] MEDS: SENNOSIDES 8.6MG TABLET (FP) PO SCH (21:24)
[2020-12-09] MEDS: MELATONIN 1 MG TABLET PO SCH (21:24)
[2020-12-09] MEDS: BENZOCAINE/MENTH/CETYLPYRD CL 1 EACH LOZENGE MM PRN (22:28)
[2020-12-10] MEDS: BENZOCAINE/MENTH/CETYLPYRD CL 1 EACH LOZENGE MM PRN ×2 (04:28→11:13)
[2020-12-10 07:28] LABS: BASO % 0.3 % (0-2.0); EOS % 0.1 % (0-4.5); HEMATOCRIT 37.3 % (32.4-45.2); HEMOGLOBIN 13.1 GM/dL (10.7-15.3); LYMPH % 14.8 % (8-40); MCH 32.7 pg (25.7-33.7); MCHC 35.1 g/dl (32.0-36.0); MEAN PLT VOLUME 8.1 fl (7.5-11.1); MONO % 7.5 % (3.8-10.2); NEUT % 77.3 % (42.8-82.8); PLATELET COUNT 552 K/MM3 (134-434); RBC 4.01 M/mm3 (3.60-5.2); RDW 12.7 % (11.6-15.6)
[2020-12-10 08:00] LABS: ALBUMIN 2.5 g/dl (3.4-5.0)
[2020-12-10 08:01] LABS: BLOOD UREA NITROGEN 13.2 mg/dL (7-18)
[2020-12-10 08:04] LABS: CALCIUM 8.6 mg/dL (8.5-10.1); CREATININE 0.6 mg/dL (0.55-1.3)
[2020-12-10 08:06] LABS: TOT PROT 6.3 g/dl (6.4-8.2)
[2020-12-10 08:34] LABS: BILIRUBIN,TOTAL 0.8 mg/dL (0.2-1)
[2020-12-10 10:22] LABS: ANISOCYTOSIS 0; HELMET CELLS 0; HOWELL-JOLLY BODIES 0; MACROCYTOSIS 0; OVALOCYTE 0; PLATELET ESTIMATE INCREASED; ROULEAU 0; SICKELED CELLS 0; TARGET CELLS 0; TEAR DROP CELLS 0; TOXIC GRANULATION 0
[2020-12-10] MEDS ORDERED: PT OWN MED DRAWER 7, Y5N ONE ×2 (10:57→21:39)
[2020-12-10] MEDS: ALBUTEROL SO4 HFA INHALER IH SCH ×4 (11:06→20:06)
[2020-12-10] MEDS: ENOXAPARIN NA (PORCINE) 60 MG/0.6 ML DISP.SYRIN SQ SCH ×2 (11:07→21:42)
[2020-12-10] MEDS: NICOTINE 14 MG/24 HOURS TOPICAL PATCH TD SCH (11:08)
[2020-12-10] MEDS: ZINC SULFATE 220 MG CAPSULE (FP) PO SCH (11:08)
[2020-12-10] MEDS: metoPROLOL SUCCINATE 25 MG TAB.SR.24H (FP) PO SCH (11:09)
[2020-12-10] MEDS: ASCORBIC ACID 500 MG TABLET (FP) PO SCH ×2 (11:10→21:41)
[2020-12-10] MEDS: FAMOTIDINE 20 MG TABLET PO SCH ×2 (11:11→21:41)
[2020-12-10] MEDS: CHOLECALCIFEROL (VIT D3) 1,000 UNIT (25 MCG) TABLET PO SCH (11:11)
[2020-12-10] MEDS: DEXAMETHASONE SOD PHOSPHATE 10 MG/1 ML VIAL IVPUSH SCH (11:12)
[2020-12-10] MEDS: guaiFENesin/CODEINE 5 ML UNIT-DOSE CUPS PO PRN ×2 (11:12→20:03)
[2020-12-10] MEDS: BUDESONIDE/FORMETEROL FUMARATE 160/4.5 mcg INHALER IH SCH ×2 (11:14→21:41)
[2020-12-10] MEDS: SENNOSIDES 8.6MG TABLET (FP) PO SCH (21:41)
[2020-12-10] MEDS: MELATONIN 1 MG TABLET PO SCH (21:41)
[2020-12-11 08:33] LABS: BASO % 0.5 % (0-2.0); EOS % 0.1 % (0-4.5); HEMATOCRIT 38.3 % (32.4-45.2); HEMOGLOBIN 13.3 GM/dL (10.7-15.3); LYMPH % 15.3 % (8-40); MCHC 34.8 g/dl (32.0-36.0); MEAN CELL VOLUME 94.8 fl (80-96); MEAN PLT VOLUME 8.2 fl (7.5-11.1); MONO % 6.8 % (3.8-10.2); NEUT % 77.3 % (42.8-82.8); PLATELET COUNT 626 K/MM3 (134-434); RBC 4.04 M/mm3 (3.60-5.2); RDW 12.9 % (11.6-15.6); WHITE BLOOD COUNT 13.3 K/mm3 (4.0-10.0)
[2020-12-11 08:44] LABS: POTASSIUM 5.1 mmol/L (3.5-5.1)
[2020-12-11 08:47] LABS: CALCIUM 9.1 mg/dL (8.5-10.1)
[2020-12-11 08:50] LABS: CREATININE 0.6 mg/dL (0.55-1.3)
[2020-12-11] MEDS ORDERED: PT OWN MED DRAWER 7, Y5N ONE ×2 (10:56→21:41)
[2020-12-11] MEDS: FAMOTIDINE 20 MG TABLET PO SCH ×2 (10:57→21:59)
[2020-12-11] MEDS: ZINC SULFATE 220 MG CAPSULE (FP) PO SCH (10:57)
[2020-12-11] MEDS: metoPROLOL SUCCINATE 25 MG TAB.SR.24H (FP) PO SCH (10:57)
[2020-12-11] MEDS: NICOTINE 14 MG/24 HOURS TOPICAL PATCH TD SCH (10:57)
[2020-12-11] MEDS: ASCORBIC ACID 500 MG TABLET (FP) PO SCH ×2 (10:57→21:59)
[2020-12-11] MEDS: ENOXAPARIN NA (PORCINE) 60 MG/0.6 ML DISP.SYRIN SQ SCH ×2 (10:58→21:58)
[2020-12-11] MEDS: ALBUTEROL SO4 HFA INHALER IH SCH ×4 (10:58→22:00)
[2020-12-11] MEDS: BUDESONIDE/FORMETEROL FUMARATE 160/4.5 mcg INHALER IH SCH ×2 (10:58→22:00)
[2020-12-11] MEDS: CHOLECALCIFEROL (VIT D3) 1,000 UNIT (25 MCG) TABLET PO SCH (10:58)
[2020-12-11] MEDS: DEXAMETHASONE SOD PHOSPHATE 10 MG/1 ML VIAL IVPUSH SCH (11:06)
[2020-12-11 12:26] LABS: ANISOCYTOSIS 0; MACROCYTOSIS 0; PLATELET ESTIMATE INCREASED
[2020-12-11] MEDS: MELATONIN 1 MG TABLET PO SCH (21:59)
[2020-12-11] MEDS: SENNOSIDES 8.6MG TABLET (FP) PO SCH (21:59)
[2020-12-12 07:50] LABS: BASO % 1.9 % (0-2.0); HEMATOCRIT 39.4 % (32.4-45.2); HEMOGLOBIN 13.5 GM/dL (10.7-15.3); LYMPH % 9.8 % (8-40); MCH 32.4 pg (25.7-33.7); MCHC 34.2 g/dl (32.0-36.0); MEAN CELL VOLUME 94.6 fl (80-96); MONO % 7.2 % (3.8-10.2); NEUT % 81.1 % (42.8-82.8); PLATELET COUNT 623 K/MM3 (134-434); RBC 4.16 M/mm3 (3.60-5.2); RDW 13.1 % (11.6-15.6); WHITE BLOOD COUNT 13.9 K/mm3 (4.0-10.0)
[2020-12-12 08:11] LABS: POTASSIUM 4.7 mmol/L (3.5-5.1)
[2020-12-12 08:18] LABS: CALCIUM 9.1 mg/dL (8.5-10.1)
[2020-12-12 08:19] LABS: BLOOD UREA NITROGEN 17.7 mg/dL (7-18)
[2020-12-12 08:21] LABS: CREATININE 0.7 mg/dL (0.55-1.3)
[2020-12-12] MEDS: ALBUTEROL SO4 HFA INHALER IH SCH ×4 (09:26→22:09)
[2020-12-12] MEDS: DEXAMETHASONE SOD PHOSPHATE 10 MG/1 ML VIAL IVPUSH SCH (09:28)
[2020-12-12] MEDS: NICOTINE 14 MG/24 HOURS TOPICAL PATCH TD SCH ×2 (09:28→09:48)
[2020-12-12] MEDS: ZINC SULFATE 220 MG CAPSULE (FP) PO SCH (09:29)
[2020-12-12] MEDS: metoPROLOL SUCCINATE 25 MG TAB.SR.24H (FP) PO SCH (09:30)
[2020-12-12] MEDS: ASCORBIC ACID 500 MG TABLET (FP) PO SCH ×2 (09:31→21:52)
[2020-12-12] MEDS: BUDESONIDE/FORMETEROL FUMARATE 160/4.5 mcg INHALER IH SCH ×3 (09:31→22:09)
[2020-12-12] MEDS: CHOLECALCIFEROL (VIT D3) 1,000 UNIT (25 MCG) TABLET PO SCH (09:32)
[2020-12-12] MEDS: FAMOTIDINE 20 MG TABLET PO SCH ×2 (09:32→21:52)
[2020-12-12] MEDS: BENZOCAINE/MENTH/CETYLPYRD CL 1 EACH LOZENGE MM PRN (09:35)
[2020-12-12 10:45] LABS: ANISOCYTOSIS 0; HELMET CELLS 0; HOWELL-JOLLY BODIES 0; MACROCYTOSIS 0; OVALOCYTE 0; PLATELET ESTIMATE INCREASED; ROULEAU 0; SICKELED CELLS 0; TARGET CELLS 0; TEAR DROP CELLS 0; TOXIC GRANULATION 0
[2020-12-12] MEDS: MELATONIN 1 MG TABLET PO SCH (21:52)
[2020-12-12] MEDS: ENOXAPARIN NA (PORCINE) 60 MG/0.6 ML DISP.SYRIN SQ SCH (21:52)
[2020-12-12] MEDS: SENNOSIDES 8.6MG TABLET (FP) PO SCH (22:09)
[2020-12-13 07:59] LABS: BASO % 0.1 % (0-2.0); HEMATOCRIT 36.1 % (32.4-45.2); HEMOGLOBIN 12.2 GM/dL (10.7-15.3); LYMPH % 12.4 % (8-40); MCH 32.1 pg (25.7-33.7); MCHC 33.7 g/dl (32.0-36.0); MEAN CELL VOLUME 95.2 fl (80-96); MEAN PLT VOLUME 8.2 fl (7.5-11.1); MONO % 8.7 % (3.8-10.2); NEUT % 78.8 % (42.8-82.8); PLATELET COUNT 549 K/MM3 (134-434); RBC 3.79 M/mm3 (3.60-5.2); RDW 13.1 % (11.6-15.6); WHITE BLOOD COUNT 12.5 K/mm3 (4.0-10.0)
[2020-12-13] MEDS: ALBUTEROL SO4 HFA INHALER IH SCH ×4 (08:00→20:40)
[2020-12-13 08:25] LABS: POTASSIUM 4.3 mmol/L (3.5-5.1)
[2020-12-13 08:31] LABS: BLOOD UREA NITROGEN 16.7 mg/dL (7-18); CALCIUM 8.7 mg/dL (8.5-10.1)
[2020-12-13 08:34] LABS: CREATININE 0.7 mg/dL (0.55-1.3)
[2020-12-13] MEDS: metoPROLOL SUCCINATE 25 MG TAB.SR.24H (FP) PO SCH (10:11)
[2020-12-13] MEDS: DEXAMETHASONE SOD PHOSPHATE 10 MG/1 ML VIAL IVPUSH SCH (10:11)
[2020-12-13] MEDS: FAMOTIDINE 20 MG TABLET PO SCH ×2 (10:11→21:37)
[2020-12-13] MEDS: NICOTINE 14 MG/24 HOURS TOPICAL PATCH TD SCH ×2 (10:11→17:58)
[2020-12-13] MEDS: ASCORBIC ACID 500 MG TABLET (FP) PO SCH ×2 (10:11→21:36)
[2020-12-13] MEDS: ZINC SULFATE 220 MG CAPSULE (FP) PO SCH (10:11)
[2020-12-13] MEDS: CHOLECALCIFEROL (VIT D3) 1,000 UNIT (25 MCG) TABLET PO SCH (10:12)
[2020-12-13] MEDS: ENOXAPARIN NA (PORCINE) 60 MG/0.6 ML DISP.SYRIN SQ SCH ×2 (10:12→21:37)
[2020-12-13] MEDS: BUDESONIDE/FORMETEROL FUMARATE 160/4.5 mcg INHALER IH SCH ×2 (11:18→21:38)
[2020-12-13] MEDS ORDERED: ONDANSETRON 8 MG TABLET (FP) PO PRN (18:27)
[2020-12-13] MEDS ORDERED: PT OWN MED DRAWER 7, Y5N ONE (20:24)
[2020-12-13] MEDS: MELATONIN 1 MG TABLET PO SCH (21:37)
[2020-12-13] MEDS: SENNOSIDES 8.6MG TABLET (FP) PO SCH (21:38)
[2020-12-14 07:20] LABS: BASO % 0.3 % (0-2.0); EOS % 0.1 % (0-4.5); HEMATOCRIT 36.8 % (32.4-45.2); HEMOGLOBIN 12.5 GM/dL (10.7-15.3); LYMPH % 14.6 % (8-40); MCH 32.3 pg (25.7-33.7); MCHC 34.1 g/dl (32.0-36.0); MEAN CELL VOLUME 94.9 fl (80-96); MEAN PLT VOLUME 7.9 fl (7.5-11.1); PLATELET COUNT 512 K/MM3 (134-434); RBC 3.88 M/mm3 (3.60-5.2); RDW 12.9 % (11.6-15.6); WHITE BLOOD COUNT 14.2 K/mm3 (4.0-10.0)
[2020-12-14 07:34] LABS: POTASSIUM 4.4 mmol/L (3.5-5.1)
[2020-12-14 07:42] LABS: BLOOD UREA NITROGEN 16.7 mg/dL (7-18); CALCIUM 9.2 mg/dL (8.5-10.1); CREATININE 0.7 mg/dL (0.55-1.3)
[2020-12-14] MEDS: ALBUTEROL SO4 HFA INHALER IH SCH ×3 (08:48→16:12)
[2020-12-14 09:49] LABS: ANISOCYTOSIS 0; MACROCYTOSIS 0; PLATELET ESTIMATE INCREASED
[2020-12-14] MEDS: NICOTINE 14 MG/24 HOURS TOPICAL PATCH TD SCH (10:20)
[2020-12-14] MEDS: ASCORBIC ACID 500 MG TABLET (FP) PO SCH (10:21)
[2020-12-14] MEDS: ENOXAPARIN NA (PORCINE) 60 MG/0.6 ML DISP.SYRIN SQ SCH (10:21)
[2020-12-14] MEDS: DEXAMETHASONE SOD PHOSPHATE 10 MG/1 ML VIAL IVPUSH SCH (10:21)
[2020-12-14] MEDS: FAMOTIDINE 20 MG TABLET PO SCH (10:21)
[2020-12-14] MEDS: metoPROLOL SUCCINATE 25 MG TAB.SR.24H (FP) PO SCH (10:21)
[2020-12-14] MEDS: ZINC SULFATE 220 MG CAPSULE (FP) PO SCH (10:22)
[2020-12-14] MEDS: BUDESONIDE/FORMETEROL FUMARATE 160/4.5 mcg INHALER IH SCH (10:22)
[2020-12-14] MEDS: CHOLECALCIFEROL (VIT D3) 1,000 UNIT (25 MCG) TABLET PO SCH (10:22)
[2020-12-14 14:52] VITALS: BP 117/53; PULSE 76; TEMP 98.9
== END 2020-12-14 17:21 | DRG 137 ==
LOC: JER 03:30 → JERBED 07:41 → J7W 20:35
PROVIDERS: ADMIT Internal Medicine; ATTEND Internal Medicine
PROC: XW033E5 Introduction of Remdesivir Anti-infective into Peripheral Vein, Percutaneous Approach, New Technology Group 5 (ICD-10-PCS; principal; 2020-12-05)
DX: U07.1 COVID-19 (principal); J12.82 Pneumonia due to coronavirus disease 2019; F41.9 Anxiety disorder, unspecified; I10 Essential (primary) hypertension; F17.210 Nicotine dependence, cigarettes, uncomplicated; R05 Cough; J96.01 Acute respiratory failure with hypoxia; K59.09 Other constipation; E04.2 Nontoxic multinodular goiter
CPT/HCPCS: 36415; 71045-TC-FY; 71250-TC; 80048; 80053; 81003; 82550; 82728; 82803; 83605; 83615; 83735; 84100; 84484; 85025; 85379; 85610; 85730; 86140; 86769; 86850; 86900; 86901; 87040; 87086; 87804; 87899; 93005; 93010; 94010; 94761; 97116-GP; 97162-GP; 99285-25; C9399; C9803; J0131; J1100; U0003

== ENCOUNTER 2021-08-26 14:43 | Observation (INO) | payer OTHER ==
[2021-08-26] MEDS ORDERED: morphine SULFATE 4 MG/ML VIAL IVPUSH ONE (16:15)
[2021-08-26] MEDS ORDERED: morphine SULFATE 4 MG/ML VIAL ONE (16:37)
[2021-08-26] MEDS ORDERED: ACETAMINOPHEN 1000 MG/100 ML VIAL IVPB ONE (16:56)
[2021-08-26 17:59] LABS: BASO % 0.6 % (0-2.0); EOS % 1.6 % (0-4.5); HEMATOCRIT 40.8 % (32.4-45.2); HEMOGLOBIN 14.2 GM/dL (10.7-15.3); MCH 31.4 pg (25.7-33.7); MCHC 34.8 g/dl (32.0-36.0); MEAN CELL VOLUME 90.1 fl (80-96); MONO % 5.5 % (3.8-10.2); NEUT % 77.3 % (42.8-82.8); PLATELET COUNT 287 10^3/uL (134-434); RBC 4.53 M/mm3 (3.60-5.2); RDW 12.4 % (11.6-15.6); WHITE BLOOD COUNT 14.1 K/mm3 (4.0-10.0)
[2021-08-26 18:15] LABS: CHLORIDE 107 mmol/L (98-107); SODIUM 141 mmol/L (136-145)
[2021-08-26 18:17] LABS: CALCIUM 9.1 mg/dL (8.5-10.1)
[2021-08-26 18:18] LABS: ALBUMIN 3.9 g/dl (3.4-5.0); ANION GAP 7 MMOL/L (8-16); BLOOD UREA NITROGEN 13.8 mg/dL (7-18); CO2 26 mmol/L (21-32); GLUCOSE,RANDOM 117 mg/dL (74-106)
[2021-08-26 18:21] LABS: CREATININE 0.6 mg/dL (0.55-1.3); SGOT/AST 23 U/L (15-37); SGPT/ALT 34 U/L (13-61)
[2021-08-26 18:23] LABS: BILIRUBIN,TOTAL 0.2 mg/dL (0.2-1); TOT PROT 7.2 g/dl (6.4-8.2)
[2021-08-26 18:24] LABS: ALK PHOS 138 U/L (45-117)
[2021-08-26 22:48] LABS: URINE APPEARANCE CLEAR; URINE BILIRUBIN NEGATIVE (NEGATIVE); URINE COLOR YELLOW; URINE GLUCOSE (UA) NEGATIVE (NEGATIVE); URINE KETONE NEGATIVE (NEGATIVE); URINE LEUK ESTERASE NEGATIVE (NEGATIVE); URINE NITRITE NEGATIVE (NEGATIVE); URINE PROTEIN NEGATIVE (NEGATIVE); URINE UROBILINOGEN 0.2 mg/dL (0.2-1.0)
[2021-08-27 06:11] LABS: BASO % 0.7 % (0-2.0); HEMATOCRIT 38.7 % (32.4-45.2); HEMOGLOBIN 13.3 GM/dL (10.7-15.3); LYMPH % 38.2 % (8-40); MCHC 34.4 g/dl (32.0-36.0); MEAN PLT VOLUME 8.5 fl (7.5-11.1); MONO % 7.8 % (3.8-10.2); NEUT % 50.3 % (42.8-82.8); PLATELET COUNT 269 10^3/uL (134-434); RBC 4.16 M/mm3 (3.60-5.2); RDW 12.6 % (11.6-15.6); WHITE BLOOD COUNT 8.6 K/mm3 (4.0-10.0)
[2021-08-27] MEDS ORDERED: HEPARIN NA (PORCINE) 5,000 UNITS/ML 1ML VIAL ONE (06:12)
[2021-08-27] MEDS ORDERED: HYDROCHLOROTHIAZIDE 25 MG TABLET (FP) ONE (06:12)
[2021-08-27] MEDS: HYDROCHLOROTHIAZIDE 25 MG TABLET (FP) PO SCH (06:27)
[2021-08-27] MEDS: HEPARIN NA (PORCINE) 5,000 UNITS/ML 1ML VIAL SQ SCH ×2 (06:27→21:02)
[2021-08-27 06:30] LABS: CALCIUM 8.6 mg/dL (8.5-10.1)
[2021-08-27 06:31] LABS: BLOOD UREA NITROGEN 12.4 mg/dL (7-18); MAGNESIUM 2.1 mg/dL (1.8-2.4)
[2021-08-27 06:34] LABS: CREATININE 0.6 mg/dL (0.55-1.3); PHOSPHOROUS 4.1 mg/dL (2.5-4.9)
[2021-08-27] MEDS ORDERED: ACETAMINOPHEN 325 MG TABLET (FP) PO PRN (07:14)
[2021-08-27] MEDS ORDERED: ACETAMINOPHEN 325 MG TABLET (FP) ONE (08:56)
[2021-08-27] MEDS ORDERED: metoPROLOL SUCCINATE 25 MG TAB.SR.24H (FP) ONE (08:56)
[2021-08-27] MEDS ORDERED: buPROPion HCL 100 MG TABLET ONE (08:57)
[2021-08-27] MEDS: metoPROLOL SUCCINATE 25 MG TAB.SR.24H (FP) PO SCH (09:09)
[2021-08-27] MEDS ORDERED: CYCLOBENZAPRINE HCL 10 MG TABLET (FP) PO PRN (11:31)
[2021-08-27] MEDS ORDERED: DEXMEDETOMIDINE HCL 200 MCG/2 ML IVPB ONE (16:56)
[2021-08-27 19:56] VITALS: BMI 26.9
[2021-08-27] MEDS: oxyCODONE HCL 5 MG TABLET PO PRN (21:00)
[2021-08-27] MEDS: ACETAMINOPHEN 325 MG TABLET (FP) PO PRN (21:01)
[2021-08-27] MEDS ORDERED: POLYETHYLENE GLYCOL (HEALTHYLAX) 3350 17 GM PACKET PO ONE (21:45)
[2021-08-28] MEDS: ACETAMINOPHEN 325 MG TABLET (FP) PO PRN (05:12)
[2021-08-28] MEDS: oxyCODONE HCL 5 MG TABLET PO PRN (05:12)
[2021-08-28] MEDS: HEPARIN NA (PORCINE) 5,000 UNITS/ML 1ML VIAL SQ SCH ×2 (05:13→14:25)
[2021-08-28] MEDS: HYDROCHLOROTHIAZIDE 25 MG TABLET (FP) PO SCH (06:08)
[2021-08-28] MEDS ORDERED: PT OWN MED DRAWER 7, Y5N ONE (09:05)
[2021-08-28] MEDS: metoPROLOL SUCCINATE 25 MG TAB.SR.24H (FP) PO SCH (09:34)
[2021-08-28 14:54] VITALS: BP 135/78; PULSE 70; TEMP 97.8
== END 2021-08-28 18:57 | disposition home or self-care (01) ==
LOC: JER 14:43 → JERBED 21:52 → INTOOBSV 21:52 → J6S 08-27 18:51
PROC: 3E033NZ Introduction of Analgesics, Hypnotics, Sedatives into Peripheral Vein, Percutaneous Approach (ICD-10-PCS; principal; 2021-08-26)
PROC: 3E023GC Introduction of Other Therapeutic Substance into Muscle, Percutaneous Approach (ICD-10-PCS; 2021-08-26)
DX: Z04.1 Encounter for examination and observation following transport accident (principal); M54.59 Other low back pain; M79.605 Pain in left leg; M54.9 Dorsalgia, unspecified; V09.20XA Pedestrian injured in traffic accident involving unspecified motor vehicles, initial encounter; Y93.89 Activity, other specified; Y92.410 Unspecified street and highway as the place of occurrence of the external cause; I10 Essential (primary) hypertension; D72.829 Elevated white blood cell count, unspecified; F41.9 Anxiety disorder, unspecified; E05.90 Thyrotoxicosis, unspecified without thyrotoxic crisis or storm; F17.210 Nicotine dependence, cigarettes, uncomplicated; Z29.9 Encounter for prophylactic measures, unspecified
CPT/HCPCS: 36415; 70450-TC; 71260-TC; 72125-TC; 72128-TC; 72131-TC; 73030-TC-LT-FY; 73060-TC-LT-FY; 73090-TC-LT-FY; 73110-TC-LT-FY; 73130-TC-LT-FY; 73523-TC-FY; 73552-TC-LT-FY; 73610-TC-LT-FY; 74177-TC; 80048; 80053; 81003; 82550; 83735; 84100; 84484; 85025; 85730; 86850; 86900; 86901; 87086; 87186; 96372; 96374; 97116-GP; 97162-GP; 99285-25; C9803; G0378; J0131; J1644; Q9967; U0003; U0005

== ENCOUNTER 2022-01-22 04:23 | Day surgery (SDC) | payer OTHER ==
[2022-01-21 13:39] VITALS: BMI 24.7
[2022-01-22] MEDS ORDERED: BUPIVACAINE HCL/PF 0.5% (5MG/ML) 10 ML VIAL ONE (07:17)
[2022-01-22] MEDS ORDERED: LIDOCAINE HCL 1%, 10 MG/ML (20ML VIAL) ONE (07:17)
[2022-01-22] MEDS ORDERED: LIDOCAINE HCL 2% 100 MG/5 ML DISP.SYRIN ONE (08:41)
[2022-01-22] MEDS ORDERED: ONDANSETRON 4 MG/2 ML VIAL ONE ×2 (08:41→09:23)
[2022-01-22] MEDS ORDERED: KETOROLAC TROMETHAMINE 30 MG/1 ML VIAL ONE (08:41)
[2022-01-22] MEDS ORDERED: DEXAMETHASONE SOD PHOSPHATE 4 MG/1 ML VIAL ONE (08:41)
[2022-01-22] MEDS ORDERED: MIDAZOLAM HCL 2 MG/2 ML SINGLE DOSE VIAL ONE (08:42)
[2022-01-22] MEDS ORDERED: PROPOFOL 20 ML ONE ×2 (08:42)
[2022-01-22] MEDS ORDERED: ceFAZolin SODIUM 1 GM VIAL IVPB ONE (09:10)
[2022-01-22] MEDS ORDERED: ceFAZolin SODIUM 1 GM VIAL ONE (09:13)
[2022-01-22] MEDS ORDERED: BUPIVACAINE HCL/PF 0.5% (5MG/ML) 10 ML VIAL IJ ONE (09:20)
[2022-01-22] MEDS ORDERED: LIDOCAINE HCL 1%, 10 MG/ML (50 mL VIAL) INF ONE (09:20)
[2022-01-22] MEDS ORDERED: HYDROmorphone HCl 2 MG/ML VIAL IVPUSH PRN (09:46)
[2022-01-22] MEDS ORDERED: HYDROmorphone HCl 2 MG/ML VIAL ONE (09:53)
[2022-01-22] MEDS ORDERED: HYDROmorphone HCl 2 MG/ML VIAL IVPUSH ONE ×4 (09:55→10:50)
[2022-01-22] MEDS ORDERED: LACTATED RINGERS SOLUTION 1,000 ML IV SCH (10:00)
[2022-01-22 16:07] VITALS: BP 134/72; PULSE 68; TEMP 97
== END 2022-01-22 14:50 | disposition home or self-care (01) ==
LOC: JASU-SURG 04:23
PROVIDERS: ATTEND Orthopaedic Surgery
PROC: 0LN80ZZ Release Left Hand Tendon, Open Approach (ICD-10-PCS; principal; 2022-01-22 09:00)
DX: M65.312 Trigger thumb, left thumb (principal)
CPT/HCPCS: 94760

== ENCOUNTER 2023-01-12 05:27 | Day surgery (SDC) | payer OTHER ==
[2023-01-09 12:57] VITALS: BMI 26.6
[2023-01-12 09:21] VITALS: TEMP 97.4
[2023-01-12 11:52] VITALS: BP 154/81; PULSE 60; RESP 16
== END 2023-01-12 10:42 | disposition home or self-care (01) ==
LOC: JASU-ENDO 05:27
PROVIDERS: ATTEND Internal Medicine Gastroenterology
PROC: 0DB78ZX Excision of Stomach, Pylorus, Via Natural or Artificial Opening Endoscopic, Diagnostic (ICD-10-PCS; 2023-01-12)
PROC: 0DB68ZX Excision of Stomach, Via Natural or Artificial Opening Endoscopic, Diagnostic (ICD-10-PCS; 2023-01-12)
PROC: 0DB58ZX Excision of Esophagus, Via Natural or Artificial Opening Endoscopic, Diagnostic (ICD-10-PCS; 2023-01-12)
PROC: BD49ZZZ Ultrasonography of Duodenum (ICD-10-PCS; 2023-01-12)
PROC: 0DB98ZX Excision of Duodenum, Via Natural or Artificial Opening Endoscopic, Diagnostic (ICD-10-PCS; principal; 2023-01-12 09:00)
DX: K21.00 Gastro-esophageal reflux disease with esophagitis, without bleeding (principal); K29.50 Unspecified chronic gastritis without bleeding
CPT/HCPCS: 88305-TC; 88342-TC

== ENCOUNTER 2023-02-23 11:33 | Emergency (ER) | payer OTHER ==
[2023-02-23 11:50] VITALS: BP 162/106; PULSE 86; RESP 20; TEMP 98; BMI 26.4
[2023-02-23 13:35] LABS: PH,URINE 6.5 (5.0-8.0); URINE APPEARANCE CLEAR; URINE BILIRUBIN NEGATIVE (NEGATIVE); URINE COLOR YELLOW; URINE GLUCOSE (UA) NEGATIVE (NEGATIVE); URINE KETONE NEGATIVE (NEGATIVE); URINE LEUK ESTERASE NEGATIVE (NEGATIVE); URINE NITRITE NEGATIVE (NEGATIVE); URINE PROTEIN NEGATIVE (NEGATIVE); URINE UROBILINOGEN 0.2 mg/dL (0.2-1.0)
[2023-02-23] MEDS ORDERED: LIDOCAINE 5% TOPICAL PATCH TP ONE (13:39)
[2023-02-23] MEDS ORDERED: ACETAMINOPHEN 500 MG TABLET (FP) PO ONE (13:39)
[2023-02-23] MEDS ORDERED: KETOROLAC TROMETHAMINE 30 MG/1 ML VIAL IM ONE (13:39)
[2023-02-23] MEDS ORDERED: diazePAM 5 MG TABLET PO ONE (13:39)
[2023-02-23] MEDS ORDERED: LIDOCAINE PATCH REMOVAL MC SCH (22:00)
== END 2023-02-23 14:03 | disposition home or self-care (01) ==
LOC: JERFT 11:33
DX: M54.50 Low back pain, unspecified (principal); G89.29 Other chronic pain
CPT/HCPCS: 81003; 87086; 87186; 99283-25